=== PATIENT | female | born 1945 | race Caucasian/White ===

== ENCOUNTER → 2016-08-15 | Outpatient (CLI) | payer MEDICARE, BC ==
[~2016-08-15] MED LIST: ADVIL200 MG PO; ALLEGRA180 MG PO; AMBIEN10 MG PO; BIOTIN1000 MCG PO; BIOTIN5 MG; CARTIA XT180 MG PO; CELEXA20 MG PO; CIPRO500 MG PO; CLARITIN D 12 H1 TAB PO; FLORASTOR250 MG PO; FOLTX TABLET1 EACH PO; IMODIUM2 MG PO; LIPITOR20 M1 PO; MACRODANTIN *IA50 MG PO; NEURONTIN600 MG PO; NICAZEL TABLET1 EACH PO; PERCOCET 5-3251 EACH PO; PRILOSEC20 MG PO; THERA-VITE W/ B1 TAB PO; TYLENOL WITH C1 EACH PO; TYLENOL325 MG PO; VITAMIN B-122500 MCG PO; VITAMIN C250 M1 PO; VITAMIN D1000 UNIT PO; ZOCOR40 MG PO
== END | disposition disaster alternative care site (69) ==
LOC: GRAD 09:43
DX: N20.0 Calculus of kidney (principal)